=== PATIENT | male | born 1945 | race Caucasian/White ===

== ENCOUNTER → 2019-06-13 10:31 | Outpatient (CLI) | payer MEDICARE, BC ==
--- NOTE | 2019-06-13 12:14 | NUR ---
Nuclear Medicine Cisternogram with Lumbar Puctuncture under Fluoroscopy. Consent was obtained. Time out done at 1115. Dr. Biag cleaned and numbed the injection site. Once needle was placed, 540uCi In-111 Pentetate (DTPA) was injected intrathecally at 1120.
--- NOTE | 2019-06-13 13:45 | NUR ---
1340 PT AAOX3. PT IS LYING DOWN. HOB UP TO APPROX 30 DEGREES TO EAT LUNCH AND NOW LOWERED BUT PT IS NOT FLAT. PT STATES HE HAS BEEN UP TO BATHROOM TO VOID X'S ONE. SPOKE WITH NARESH IN NUCLEAR MEDICINE WHO STATES PT DOES HAVE BR PRIVILEGES, BUT IS TO BE ON BEDREST WITH HOB < 30 DEGREES. HE WILL RETURN TO NUCLEAR MEDICINE AT 3PM. PT HAS CALLED LIGHT AND IS AWARE TO NOTIFY US IF HE NEEDS ANYTHING AND ESPECIALLY IF HE NEEDS TO GO TO THE BATHROOM.
== END | disposition home or self-care (01) ==
LOC: D.NM 05-23 08:00 → D.OPS 05-23 08:00 → D.NM 05-23 12:00 → D.OPS 08:00 → D.NM 10:31
PROVIDERS: ATTEND Psychiatry & Neurology Neurology
DX: G91.2 (Idiopathic) normal pressure hydrocephalus (principal)

== ENCOUNTER 2019-09-11 10:28 | Inpatient (IN) | payer MEDICARE, BC ==
[~2019-09-11] VITALS: Ht 172.7 cm; Wt 72.8 kg
[2019-09-14] VITALS (24 sets, daily range): BP systolic 112–159; BP diastolic 55–96; BMI 24.6
[2019-09-14 07:21] LABS: HEMATOCRIT 44.1 % (42.0-54.0); HEMOGLOBIN 14.4 g/dL (13.5-17.5); MCH 31.9 pg (26.0-34.0); MCHC 32.7 g/dL (31.0-37.0); MCV 97.6 fL (80.0-100.0); MEAN PLATELET VOLUME 10.2 fL (7.4-10.4); RBC 4.52 10x6/uL (4.20-6.10); WBC 8.3 10x3/uL (4.8-10.8)
[2019-09-14] MEDS ORDERED: FLOMAX0.4 MG PO (08:40)
[2019-09-14] MEDS ORDERED: ISOSORBIDE MONO60 M1 PO (08:41)
[2019-09-14] MEDS ORDERED: LOPRESSOR25 MG PO (08:42)
[2019-09-14] MEDS ORDERED: LISINOPRIL10 MG PO (08:42)
[2019-09-14] MEDS ORDERED: NITROQUICK0.4 MG SL (08:42)
[2019-09-14] MEDS ORDERED: PLAVIX75 MG PO (08:43)
[2019-09-14] MEDS ORDERED: BAYER CHEWABLE81 MG PO (08:44)
--- NOTE | 2019-09-14 12:25 | NUR ---
RECEIVED PATIENT VIA BED, ALERT AND ORIENTED X 4, MOVES ALL EXTREMITIES, PUPILS PEARLA 2 MM, BRISK, BBS - CLEAR AND EQUAL, SPO2 - 98% ON RA, CM SB RATE OF 58, RR - 112. IV 20 GA TO RIGHT UPPER ARM WITH POSITIVE BLOOD RETURN AND FLUSHES EASILY, LR AT 50 ML/HR. PATIENT C/O OF RIGHT NECK PAIN RATES /. TEMP - 97.6. SCDS PLACED. HEAD TO TOE ASSESSMENT COMPLETED. EQUAL GLOBAL PROJECT MANAGER AND STRENGTH TO ALL EXTEMITIES.
--- NOTE | 2019-09-14 13:01 | NUR ---
PATIENT GIVEN CLEAR LIQUID LUNCH TRAY. ASSISTED WITH SETUP, AT BEDSIDE ASSISTING. VSS.
--- NOTE | 2019-09-14 14:21 | NUR ---
PATIENT ATE APPROXIMATELY 80% OF LUNCH, CLEAR LIQUIDS TOLERATED WELL, DIET ADVANCED TO REGULAR DIET FOR DINNER. C/O ABDOMINAL INCISIONAL PAIN 12/21, GIVEN PRN TYELENOL. VSS.
--- NOTE | 2019-09-14 14:52 | NUR ---
REASSESSMENT COMPLETED. VSS. PATIENT READING A BOOK. NO NEEDS AT THIS TIME. STATES PAIN BETTER SINCE TYLENOL RATES 2/10.
--- NOTE | 2019-09-14 16:33 | NUR ---
PATIENT GIVEN DINNER TRAY. VSS. AT BEDSIDE. NO NEEDS AT THIS TIME.
--- NOTE | 2019-09-14 16:54 | NUR ---
PATIENT ATE APPROXIMATELY 70% OF DINNER TRAY. VSS. AT BEDSIDE.
--- NOTE | 2019-09-14 19:30 | NUR ---
PT RECEIVED IN BED, HOB ELEVATED. ALERT AND ORIENTED. COMPLAINS OF MILD PAIN TO HEAD. DRESSING TO TOP AND BACK OF HEAD, ABDOMEN INTACT, SMALL DRAINAGE NOTED. 300ML URINE NOTED IN URINAL, CLEAR STRAW COLORED. URINAL EMPTIED. NO OTHER COMPLAINT/NEEDS NOTED. CALL LIGHT IN REACH. WILL CONTINUE TO OBSERVE.
--- NOTE | 2019-09-14 21:30 | NUR ---
URINAL SPILT ON LINENS WITH FRESH LINEN PROVIDED. PT TOLERATED LINEN CHANGE WELL. FRESH WATER PROVIDED. WILL CONTINUE TO OBSERVE. CALL LIGHT IN REACH.
--- NOTE | 2019-09-14 23:36 | NUR ---
PT WITH EYES OPEN WATCHING TV. NO NEEDS MADE KNOWN. CALL LIGHT IN REACH.
[2019-09-15] VITALS (15 sets, daily range): BP systolic 104–149; BP diastolic 61–78; Ht 172.7 cm; Wt 72.8 kg
--- NOTE | 2019-09-15 00:44 | NUR ---
PT COMPLAINS OF CHEST PAIN WITH ELEVATED B/P AND HR. DR. MCNULTY CALLED AT 0020, RECEIVED ORDER FOR NITRO SL. PT TAKES AT HOME PER MED REQ. ONE DOSE GIVEN AND PT WITHOUT COMPLAINTS OF PAIN AND B/P AND HR WNL. WILL CONTINUE TO OBSERVE.
--- NOTE | 2019-09-15 01:30 | NUR ---
PT WITH EYES OPEN WATCHING TV. NO S/S OF DISTESS. NO COMPLAINTS OF PAIN. CALL LIGHT IN REACH. WILL CONTINUE TO OBSERVE.
--- NOTE | 2019-09-15 03:54 | NUR ---
PT WITH EYES OPENED, HR ELEVATED. PT USING URINAL UPON ASSESSMENT. HR DECREASED WHEN PT COMPLETED. NO COMPLAINT OF PAIN. CALL LIGHT IN REACH. WILL CONTINUE TO OBSERVE.
--- NOTE | 2019-09-15 07:00 | NUR ---
RECEIVED BEDSIDE REPORT AND ASSUMED CARE OF PATIENT. PATIENT READING A BOOK, NO COMPLAINTS, VSS. ALERT AND ORIENTED X 4. IV INFUSING 20 GA IV TO RIGHT UPPER ARM, LR AT 50 ML/HR. DRESSING C/D/I. MOVES ALL EXTREMITES, EQUAL STRENGTH. BBS - CLEAR AND EQUAL. SPO2 - 96% ON RA. CM - NSR RATE 88. HEAD TO TOE ASSESMENT COMPLETED.
--- NOTE | 2019-09-15 07:40 | NUR ---
PATIENT UP TO BEDSIDE CHAIR AND GIVEN BREAKFAST TRAY. VSS.
--- NOTE | 2019-09-15 08:20 | NUR ---
PATIENT ATE 100% OF BREAKFAST. VSS. UP TO BATHROOM, STEADY GAIT, VOIDS 200 CC URINE. BACK TO BEDSIDE CHAIR. VISITING WITH .
--- NOTE | 2019-09-15 09:58 | NUR ---
DR. MCNULTY AT ROOM UPDATED AND EXAMINES PATIENT. WANTS CARDIOLOGY CONSULT DUE TO CHEST PAIN LAST NIGHT. ORDERS 81 MG ASA.
--- NOTE | 2019-09-15 11:04 | NUR ---
REASSESSMENT COMPLETED. VSS. NO NEEDS AT THIS TIME.
--- NOTE | 2019-09-15 11:55 | NUR ---
PATIENT GIVEN LUNCH TRAY. VSS.
--- NOTE | 2019-09-15 12:03 | NUR ---
DR. IYER AT ROOM UPDATED AND EXAMINES PATIENT. OKAY FROM CARDIOLOGY TO DISCHARGE PATIENT TO HOME. INSTRUCTED PATIENT IF ANY MORE CHEST PAIN TO FOLLOWUP WITH DR. MELO SOONER RATHER THAN LATER. DR. MCNULTY NOTIFIED.
--- NOTE | 2019-09-15 13:32 | NUR ---
PATIENT GIVEN DISCHARGE INSTRUCTIONS AND QUESTIONS ANSWERED. IV 20 GA REMOVED FROM RIGHT UPPER ARM. VSS. DISCHARGED TO HOME WITH , AMBULATORY.
--- NOTE | 2019-09-15 17:03 | MORECARE ---
CASE MANAGEMENT DISCHARGE SUMMARY PATIENT: ROBERTO MONTILLA UNIT: [id number] ADM DATE: 09/14/19 AGE: 73 : 45 SEX: M ROOM/BED: [facility] AUTHOR: SOWMYA GARCIA PHYSICIAN: REFERRING PHYSICIAN: ISMAEL MCNULTY MD DATE OF SERVICE: 09/15/19 Discharge Plan Patient Name: ROBERTO MONTILLA [facility] [facility] 1945 Planned Disposition: Anticipated Discharge Date: Discharge Date: 09/15/2019 Expected LOS: Initial Reviewer: [email or web address] Initial Review Date: 09/15/2019 Generated: 09/15/19 6:03 pm Patient Name: ROBERTO MONTILLA Page [phone] at 1703 All edits/amendments must be made on the electronic document DICTATION DATE: 09/15/191702 METALLURGY TEACHER: SHAWN 09/15/191702 RPT#: [id number] DC DATE:09/15/19 STATUS: DIS IN [facility] [address] [place] [address] END OF REPORT
--- NOTE | 2019-09-15 17:13 | MORECARE ---
CASE MANAGEMENT DISCHARGE SUMMARY PATIENT: ROBERTO MONTILLA UNIT: [id number] ADM DATE: 09/14/19 AGE: 73 : 45 SEX: M ROOM/BED: [facility] AUTHOR: SOWMYA GARCIA PHYSICIAN: REFERRING PHYSICIAN: ISMAEL MCNULTY MD DATE OF SERVICE: 09/15/19 Discharge Plan Patient Name: ROBERTO MONTILLA Facility: [facility]:[place] : 1945 Planned Disposition: Anticipated Discharge Date: Discharge Date: 09/15/2019 Expected LOS: Initial Reviewer: [email or web address] Initial Review Date: 09/15/2019 Generated: 09/15/19 6:12 pm Comments DCP- Discharge Planning Updated by [email or web address]: Sherine Castellano on 09/15/19 4:[address] Patient Name: ROBERTO MONTILLA Admission Status: Elective Accout number: [id number] Admission Date: 09-14-2019 : 1945 Admission Diagnosis: Attending: ISMAEL MCNULTY Current LOS: 1 Anticipated DC Date: Planned Disposition: Primary Insurance: MEDICARE A & B Discharge Planning Comments: CM met with patient at bedside after explaining CM role and obtaining verbal consent. Patient lives at home with his where he is independent with his care and plans to return there upon discharge. Patient feels this would be a safe discharge. CM discussed availability / needs of home health and medical equipment. Patient denies any discharge needs at this time. Patient states he will have his family drive him home upon discharge. CM will continue to follow and assist as needed with discharge planning / needs. Flower Cutter: Sherine Castellano Last DP export: 09/15/19 4:03 pm Patient Name: ROBERTO MONTILLA Page [phone] at 1713 All edits/amendments must be made on the electronic document DICTATION DATE: 09/15/191711 SENIOR OFFICE SUPPORT ASSISTANT SOSA: SHAWN 09/15/191711 RPT#: [id number] DC DATE:09/15/19 STATUS: DIS IN [place] [id number] [place] [address] END OF REPORT
--- NOTE | 2019-09-18 11:13 | CN ---
PATIENT NAME:ROBERTO MONTILLA MEDICAL RECORD: [id number] : 45 LOCATION:[facility] ADMIT DATE: 09/14/19 ACCOUNT: [id number] CONSULTING PHYSICIAN: SUSANNE IYER MD REFERRING PHYSICIAN: ISMAEL MCNULTY MD DATE OF CONSULTATION: 09/15/2019 CARDIOLOGY CONSULTATION ADMITTING DIAGNOSES: 1. Angina, chronic, stable. 2. Coronary artery disease. 3. Previous cardiac stents. 4. Hypertension. 5. Hyperlipidemia. 6. Status post REGISTERED NURSE STEP DOWN shunt surgery. HISTORY OF PRESENT ILLNESS: This is a gentleman who is followed by [facility] Cardiology, past history of stents 5 years ago. He has undergone cardiac catheterization since and told that he does have some degree of blockage, but they prefer to treat that medically with Imdur. He was here getting a REGISTERED NURSE STEP DOWN shunt, hence did not have his Imdur yesterday. He developed 1 episode of chest pain last night. He has no EKG changes. Troponin is normal. He has had no further episodes of chest pain. PHYSICAL EXAMINATION: CONSTITUTIONAL/GENERAL APPEARANCE: Well nourished, well developed, appears stated age. EYES: Lids and conjunctivae noninjected. No discharge. No pallor. ENT: Lips within normal limit. No cyanosis. No pallor. NECK: Carotid arteries, bilateral normal upstroke. No bruits. No thrills. No jugular venous pressure or distention. CERVICAL LYMPH NODES: Nontender. Nonenlarged. THYROID: Not enlarged. No nodules. CARDIOVASCULAR: Precordial exam, nondisplaced. No heaves or pericardial thrills. Rate and rhythm, regular. Heart sounds, normal S1, normal S2. No S3, no gallop, no rub. Systolic murmur, not heard. Diastolic murmur, not heard. RESPIRATORY: Respiratory effort, unlabored. Normal curvature. No thoracic deformity. No chest wall tenderness. Percussion, resonant. Auscultation, clear. No wheezes, no rales, no rhonchi. ABDOMEN: Soft, nondistended, nontender. No abdominal pain, no vomiting and normal appetite. MUSCULOSKELETAL: No joint tenderness, normal gait, normal tone. SKIN: Warm and dry. OVERALL IMPRESSION: Chronic stable angina, restarting his antianginal meds. No other cardiac workup is necessary in the acute setting now. Follow up with his front office agent at [facility]. TRANSINT:[id number] Voice Confirmation ID: [id number] DOCUMENT ID: [id number] CONSULT REPORT [id number] ROBERTO MONTILLA, SUSANNE MORELAND at 1113 CC: [id number] DICTATION DATE: 09/15/19 1207 STARTING GATE DRIVER: 09/15/19 1451 DIS IN 09/15/19 [place] [address]
== END 2019-09-15 14:03 | disposition home or self-care (01) | DRG 33 ==
LOC: D.SDCHOLD 09-14 06:52 → D.CVICU 09-14 06:52 → D.SDCHOLD 09-14 09:30 → D.CVICU 09-14 12:03 → D.ICU 09-14 12:57 → D.CVICU 09-14 12:57
PROVIDERS: Anesthesiology; ADMIT Neurological Surgery; ATTEND Neurological Surgery
PROC: 00160J6 Bypass Cerebral Ventricle to Peritoneal Cavity with Synthetic Substitute, Open Approach (ICD-10-PCS; principal; 2019-09-14 09:30)
DX: G91.2 (Idiopathic) normal pressure hydrocephalus (principal); M54.16 Radiculopathy, lumbar region; I10 Essential (primary) hypertension; I25.10 Atherosclerotic heart disease of native coronary artery without angina pectoris; Z72.0 Tobacco use; I25.119 Atherosclerotic heart disease of native coronary artery with unspecified angina pectoris; E78.5 Hyperlipidemia, unspecified